=== PATIENT | male | born 1980 | race Caucasian/White ===

== ENCOUNTER 2018-01-02 21:55 | Emergency (ER) | payer MEDICAID, OTHER ==
[2018-01-02 22:31] VITALS: BP 143/81; PULSE 89; RESP 18; TEMP 98.1; O2SAT 97; BMI 29.2
[2018-01-02] MEDS ORDERED: DiphenhydrAMINE 50 mg/ml Inj IVP STA (23:32)
[2018-01-02] MEDS ORDERED: Famotidine 20mg/50ml 20 MG/50 ML BAG IVPB STA (23:32)
--- NOTE | 2018-01-02 23:36 | ED PDOC ---
Arrival/HPI <Chris Salgado - Last Filed: 01/02/18 23:47> - General Historian: Patient <Nate Tom - Last Filed: 01/03/18 00:48> - General Chief Complaint: Abnormal Skin Integrity Time Seen by Provider: 01/02/18 23:03 - History of Present Illness Narrative History of Present Illness (Text): 01/02/18 23:30 This 37 yo male who denies pmh presents to this ED c/o generalized itching x 3 days. Patient stated itching worsen at bedtime. Patient denies similar symptoms in the past. (Nate Tom) Past Medical History - Psychiatric Hx Psychophysiologic Disorder: No Hx Substance Use: No - Anesthesia Hx Anesthesia: No <Nate Tom - Last Filed: 01/03/18 00:48> Family/Social History Smoking Status: Heavy Smoker > 10 Cigarettes Daily Hx Alcohol Use: No Hx Substance Use: No <Nate Tom - Last Filed: 01/03/18 00:48> Allergies/Home Meds <Chris Salgado - Last Filed: 01/02/18 23:47> <Nate Tom - Last Filed: 01/03/18 00:48> Allergies/Adverse Reactions: Allergies alcohol Allergy (Verified 01/02/18 22:08) RASH Vital Signs Temp Pulse Resp BP Pulse Ox 01/02/18 22:10 98.1 F 89 18 143/81 97 Medical Decision Making <Chris Salgado - Last Filed: 01/02/18 23:47> Re-evaluation Time: 00:45 Reassessment Condition: Re-examined, Improved <Nate Tom - Last Filed: 01/03/18 00:48> ED Course and Treatment: 01/03/18 00:45 Re-evaluation. Patient feels better. Discussed results and plan with patient who expresses understanding. All questions answered and there is agreement with the plan to discharge home with instructions. Patient stable for discharge. Return if symptoms persist or worsen. (Nate Tom) - Medication Orders Current Medication Orders: Discontinued Medications Diphenhydramine HCl (Benadryl) 50 mg IVP STAT STA Stop: 01/02/18 23:33 Last Admin: 01/02/18 23:49 Dose: 50 mg IVP Administration Document 01/02/18 23:49 JO (Rec: 01/02/18 23:49 [id number] Charges for Administration # of IVP Administrations 1 Famotidine (Pepcid 20mg/50ml Premix) 20 mg in 50 mls @ 100 mls/hr IVPB STAT STA Stop: 01/03/18 00:01 Last Admin: 01/02/18 23:49 Dose: 100 mls/hr eMAR Start Stop Document 01/02/18 23:49 JOL (Rec: 01/02/18 23:49 [id number] Intravenous Solution Start Date 01/02/18 Start Time 23:49 End Date 01/03/18 End time 00:19 Total Infusion Time 30 Methylprednisolone (Solu-Medrol) 125 mg IVP STAT STA Stop: 01/02/18 23:33 Last Admin: 01/02/18 23:49 Dose: 125 mg IVP Administration Document 01/02/18 23:49 JO (Rec: 01/02/18 23:50 [id number] Charges for Administration # of IVP Administrations 1 - PA / CHEF'S ASSISTANT / Resident Statement / has reviewed & agrees with the documentation as recorded. <Chris Salgado - Last Filed: 01/02/18 23:47> Disposition/Present on Arrival <Chris Salgado - Last Filed: 01/02/18 23:47> - Present on Arrival Any Indicators Present on Arrival: No History of DVT/PE: No History of Uncontrolled Diabetes: No Urinary Catheter: No History of Decub. Ulcer: No History Surgical Site Infection Following: None - Disposition Have Diagnosis and Disposition been Completed?: Yes Disposition Time: 00:45 Patient Plan: Discharge <Nate Tom - Last Filed: 01/03/18 00:48> - Disposition Diagnosis: Rash and other nonspecific skin eruption, Urticaria Disposition: HOME/ ROUTINE Condition: GOOD Discharge Instructions (ExitCare): [place] (AMIRA) Additional Instructions: Call private doctor or clinic for revaluation in 1-2 days. Take medication as instructed. Apply over the counter calamine lotion. Take medication as instructed. return to emergency if symptoms worsen. Prescriptions: Famotidine [Pepcid] 40 mg PO DAILY #10 tablet Prednisone [Deltasone] 40 mg PO DAILY #8 tablet Referrals: Poornima Manzanares MD [Primary Care Provider] - Follow up with primary Forms: [facility] ([place]ish)
== END 2018-01-03 00:50 | disposition home or self-care (01) ==
LOC: ED 21:55
DX: L50.9 Urticaria, unspecified (principal)
CPT/HCPCS: 96365; 96375; 99282; J1200; J2930